=== PATIENT | female | born 1975 | race Caucasian/White ===

== ENCOUNTER → 2017-08-11 | Outpatient (CLI) | payer OTHER ==
[2017-08-11 12:19] LABS: Basophils % (A) 1 %; CH 30.8; CHCM 33.2; Eosinophils # (A) 0.4 k/uL (0-0.7); Eosinophils % (A) 5 %; HCT 41.5 % (34.0-46.0); HDW 2.63; HGB 14.3 gm/dL (11.4-16.0); Luc # (Auto) 0.08; Luc % (Auto) 1; Lymphocytes % (A) 31 %; MCHC 34.4 g/dL (31.0-37.0); Mean Platelet Volume 7.7; Monocytes # (A) 0.3 k/uL (0-1.0); Monocytes % (A) 4 %; Neutrophils # (A) 3.8 k/uL (1.3-7.7); Neutrophils % (A) 58 %; RBC 4.46 m/uL (3.80-5.40); RDW 13.2 % (11.5-15.5); WBC 6.5 k/uL (3.8-10.6); WBC (Perox) 6.58
== END | disposition home or self-care (01) ==
LOC: LABPAT 11:46
PROVIDERS: ATTEND Obstetrics & Gynecology
DX: Z01.812 Encounter for preprocedural laboratory examination (principal)
CPT/HCPCS: 36415; 85025

== ENCOUNTER 2017-08-19 06:02 | Day surgery (SDC) | payer BC, OTHER ==
[2017-08-16 13:54] VITALS: BMI 26.0
--- NOTE | 2017-08-18 07:33 | P.HPOB ---
History of Present Illness H&P Date: 08/18/17 Chief Complaint: Menorrhagia and dysmenorrhea. This patient is a pleasant 41-year-old 2 para 2 female whose had long- standing history of menorrhagia and dysmenorrhea. Patient has been using anti- inflammatories and tried oral contraceptives in the past. Patient has had a pelvic ultrasound which was unremarkable. Patient is now requesting trial of endometrial ablation for treatment. Review of Systems Constitutional: Denies chills, Denies fever Cardiovascular: Denies chest pain, Denies shortness of breath Respiratory: Denies cough Gastrointestinal: Denies abdominal pain, Denies diarrhea, Denies nausea, Denies vomiting Genitourinary: Reports as per HPI Menstruation: Reports period heavy Past Medical History Additional Past Medical History / Comment(s): MIGRAINES History of Any Multi-Drug Resistant Organisms: None Reported Past Surgical History: Cholecystectomy, Orthopedic Surgery Additional Past Surgical History / Comment(s): LEFT KNEE SURGERY Past Anesthesia/Blood Transfusion Reactions: No Reported Reaction Past Psychological History: No Psychological Hx Reported Smoking Status: Current every day smoker Past Alcohol Use History: Occasional Past Drug Use History: None Reported - Past Family History Mother Family Medical History: No Reported History Medications and Allergies Home Medications Medication Instructions Recorded Confirmed Type Eletriptan [Relpax] 40 mg PO DIRECTED PRN 08/16/17 08/16/17 History Ibuprofen [Motrin] 800 mg PO DIRECTED 08/16/17 08/16/17 History Naproxen [Naproxen] 500 mg PO DIRECTED PRN 08/16/17 08/16/17 History Allergies Allergy/AdvReac Type Severity Reaction Status Date / Time No Known Allergies Allergy Verified 08/16/17 13:35 Exam - OBG Physical Exam Abdomen: bowel sounds normal, no diffuse tenderness, no bruit present, no guarding noted, no hepatomegaly, no splenomegaly, no mass Vulva: both: normal Vagina: normal moisture, no discharge Cervix: no lesion, no discharge Uterus: normal size, normal contour Adnexa: both: normal Assessment and Plan (1) Menorrhagia Narrative/Plan: This is a pleasant 41-year-old 2 para 2 female with persistent menorrhagia and dysmenorrhea requesting trial of endometrial ablation for treatment. Patient does understand the surgery and risks including risks of infection, bleeding, possible uterine perforation, and/or thermal injury. All the patient's questions have been answered and a written consent is obtained. Patient I also discussed the fact that this most likely will help her menorrhagia it may or may not help the dysmenorrhea. Status: Acute (2) Dysmenorrhea Status: Acute
[~2017-08-19 06:02] MED LIST: DEXAMETHASONE SOD PHOSPHATE 10 MG/ML 1 ML VIAL IV ONE; LACTATED RINGERS 1,000 ML IV SCH; LIDOCAINE 1% 20 ML VIAL (10MG/ML) FOR IV START INTRADERMA PRN; ONDANSETRON 4 MG/2 ML VIAL IVP ONE; Pre Op ABX Message 1 EACH MISC MISCELLANE ONE; SCOPOLAMINE 1.5MG/72HR PATCH TRANSDERM ONE
[2017-08-19] MEDS ORDERED: LIDOCAINE 1% INJ 10MG/ML (20 ML MDV) ONE (06:46)
[2017-08-19] MEDS ORDERED: KETOROLAC 30 MG/ML 1 ML VIAL ONE (06:46)
[2017-08-19] MEDS ORDERED: MIDAZOLAM 2 MG/2 ML VIAL ONE (06:46)
[2017-08-19] MEDS ORDERED: PROPOFOL 10 MG/ML 20 ML VIAL IV ONE (06:46)
[2017-08-19] MEDS: HYDROmorphone 1 MG/ML 1 ML SYRINGE IVP ONE ×4 (07:23→08:03)
--- NOTE | 2017-08-19 07:24 | P.OP ---
Date of Procedure: 08/19/17 Preoperative Diagnosis: Menorrhagia and dysmenorrhea Postoperative Diagnosis: Same Procedure(s) Performed: #1: Hysteroscopy. #2 D&C. #3: NovaSure endometrial ablation. Anesthesia: MAC Surgeon: Porfirio Ann Estimated Blood Loss (ml): 10 Urine output (ml): 10 Pathology: other (Uterine curettings) Condition: stable Disposition: PACU Indications for Procedure: Please see dictated H&P for intimate details of this patient's admission. Brief summary this is a pleasant 41-year-old 2 para 2 female with long- standing menorrhagia and dysmenorrhea who wishes to try an endometrial ablation for treatment. Patient does understand the surgery and risks including risks of infection, bleeding, possible uterine perforation, and/or thermal injury. All the patient's questions were answered written consent is obtained. Operative Findings: This patient had a normal-appearing uterine cavity. Description of Procedure: This patient is taken to the operating room where she is laid in the supine position. She subsequently goes general anesthesia without incident. With an adequate level of anesthesia she's placed in dorsal lithotomy position. She has a vaginal perineal prep and drape. Examination under anesthesia shows a mid position uterus. I first drain her bladder for 10 mL of clear urine. A weighted speculum placed in the posterior vagina. The anterior lip of the cervix was then grabbed with an Allis clamp. I gently sound the uterus to 9.5 cm. Gentle dilation is then done of the endocervix to allow the hysteroscope easily and the uterine cavity. Hysteroscopy is performed with saline solution. Uterine cavity is measured a length of 6.5 cm. Uterine cavity appears normal without polyps fibroids or growths. With this done cervix is dilated more to allow a sharp curette easily and uterine cavity a gentle but thorough curettage of all 4 quadrants is done. With this done the NovaSure device is then opened it appears to be intact. It is set at a length of 6.5 cm and opens up to a width of 4.2 cm. The NovaSure device is then sealed in place and passes the cavity integrity test. It is enabled at 150 W setting for 58 seconds. NovaSure device is then removed again appears to be intact. Hysteroscopy again is performed and the uterine cavity appears to be ablated up to the endocervix. This completed the procedure is then ended. The Allis clamp and weighted speculum removed. All counts are correct 3. Patient is awakened from anesthesia and taken recovery room in satisfactory condition. No complications.
[2017-08-19 07:32] VITALS: TEMP 96.7
[2017-08-19] MEDS ORDERED: LACTATED RINGERS 1,000 ML IV ONE (07:45)
[2017-08-19 08:03] VITALS: RESP 16
[2017-08-19] MEDS ORDERED: ONDANSETRON 4 MG/2 ML VIAL IVP ONE (09:39)
[2017-08-19 10:05] VITALS: BP 105/62; PULSE 72
== END 2017-08-19 10:22 | disposition home or self-care (01) ==
LOC: OR 06:02
PROVIDERS: ATTEND Obstetrics & Gynecology
DX: N92.0 Excessive and frequent menstruation with regular cycle (principal); N94.6 Dysmenorrhea, unspecified; F17.200 Nicotine dependence, unspecified, uncomplicated; Z79.1 Long term (current) use of non-steroidal anti-inflammatories (NSAID); Z79.3 Long term (current) use of hormonal contraceptives
CPT/HCPCS: 81025; 88305; 58563; J2250; J1100; J2405; J2001; J1885; J1170; J2704

== ENCOUNTER → 2018-08-10 | Outpatient (CLI) | payer OTHER ==
--- NOTE | 2018-08-10 14:57 | MM ---
Reason for exam: screening (asymptomatic). Last mammogram was performed 4 years and 3 months ago. History: Family history of breast cancer in maternal grandmother. Physical Findings: A clinical breast exam by your physician is recommended on an annual basis and results should be correlated with mammographic findings. MG Screening Mammo w CAD Bilateral CC and MLO view(s) were taken. Prior study comparison: May 22, 2014, mammogram, performed at [facility]. The breast tissue is heterogeneously dense. This may lower the sensitivity of mammography. New nodularity in the left breast. Focal asymmetry right upper outer quadrant anterior depth. This finding is changed when compared with previous exams. ASSESSMENT: Incomplete: need additional imaging evaluation, BI-RAD 0 RECOMMENDATION: Special view mammogram of the right breast. Ultrasound of the left breast. [facility] will attempt to contact patient to return for supplemental views and ultrasound.
== END | disposition home or self-care (01) ==
LOC: RADMAMWWP 08:06
PROVIDERS: ATTEND Obstetrics & Gynecology
DX: Z12.31 Encounter for screening mammogram for malignant neoplasm of breast (principal)
CPT/HCPCS: 77067

== ENCOUNTER → 2019-04-17 | Outpatient (CLI) | payer OTHER ==
--- NOTE | 2019-04-19 08:50 | MR ---
EXAMINATION TYPE: MR cervical spine wo con DATE OF EXAM: 04/17/2019 COMPARISON: Prior MR cervical spine 08/15/2015 HISTORY: Radiculopathy, cervical region TECHNIQUE: Multiplanar, multisequence images of the cervical spine were acquired. C2-C3: No evidence for degenerative disc disease. No disc bulge/herniation or protrusion. No Canal stenosis. Foramina are patent bilaterally. C3-C4: Uncovertebral joint hypertrophy causes some left-sided foraminal encroachment. There is house detective ior extension of endplate disc complex causing some anterolateral mass effect on the thecal sac. No s ignificant central stenosis. C4-C5: Lateral extension of endplate disc complex, uncovertebral joint hypertrophy causes some left s ided foraminal encroachment. Mild anterior mass effect on the thecal sac. No significant central sten osis. C5-C6: Posterior extension endplate disc complex with posterior disc herniation likely contacting the anterior cervical cord results in mild to moderate central canal stenosis. There is bilateral forami nal encroachment due to uncovertebral joint hypertrophy. C6-C7: Bilateral foraminal encroachment due to uncovertebral joint hypertrophy, there is posterior ex tension endplate disc complex somewhat eccentric to the left causing mild central stenosis. C7-T1: No evidence for degenerative disc disease. No disc bulge/herniation or protrusion. No Canal stenosis. Foramina are patent bilaterally. Cervical segments are intact. There is normal alignment. Cervical spinal cord is of normal signal. Craniovertebral junction relationships are within normal limits. There is some loss of disc height signal at C5-6 and C6-7. There is associated spondylosis and endplate discogenic marrow signal change . Straightening of the cervical spine may be due to underlying muscle spasm. IMPRESSION: Degenerative disc disease. Mild sinus disease noted incidentally.
== END | disposition home or self-care (01) ==
LOC: RADMRIMAIN 08:14
PROVIDERS: ATTEND Psychiatry & Neurology Neurology
DX: M50.30 Other cervical disc degeneration, unspecified cervical region (principal)
CPT/HCPCS: 72141

== ENCOUNTER → 2019-12-11 | Outpatient (CLI) | payer BC ==
[2019-12-11 14:03] LABS: Basophils # (A) 0.1 k/uL (0-0.2); Basophils % (A) 1 %; Eosinophils # (A) 0.2 k/uL (0-0.7); Eosinophils % (A) 2 %; HCT 46.4 % (34.0-46.0); HGB 15.4 gm/dL (11.4-16.0); Lymphocytes # (A) 2.3 k/uL (1.0-4.8); Lymphocytes % (A) 28 %; MCH 31.6 pg (25.0-35.0); MCHC 33.1 g/dL (31.0-37.0); MCV 95.4 fL (80.0-100.0); Mean Platelet Volume 8.3; Monocytes # (A) 0.3 k/uL (0-1.0); Monocytes % (A) 4 %; Neutrophils # (A) 5.2 k/uL (1.3-7.7); Neutrophils % (A) 64 %; Platelet Count 238 k/uL (150-450); RBC 4.86 m/uL (3.80-5.40); WBC 8.1 k/uL (3.8-10.6)
[2019-12-11 14:54] LABS: African American GFR (CKD) >90 (>60 ml/min/1.73 sqM); Anion Gap 8 mmol/L; Blood Urea Nitrogen 14 mg/dL (7-17); Calcium 10.2 mg/dL (8.4-10.2); Carbon Dioxide 27 mmol/L (22-30); Chloride 106 mmol/L (98-107); Glucose 118 mg/dL (74-99); Non-African American GFR(CKD) >90 (>60 ml/min/1.73 sqM); Sodium 141 mmol/L (137-145)
== END | disposition home or self-care (01) ==
LOC: LABWHC1 12:30
PROVIDERS: ATTEND Obstetrics & Gynecology
DX: Z01.812 Encounter for preprocedural laboratory examination (principal)
CPT/HCPCS: 36415; 80048; 85025; 86850; 86900; 86901

== ENCOUNTER 2019-12-20 06:06 | Day surgery (SDC) | payer BC, OTHER ==
[2019-12-18 14:12] VITALS: BMI 26.5
--- NOTE | 2019-12-18 17:09 | P.HPOB ---
History of Present Illness H&P Date: 12/18/19 Chief Complaint: Dysfunctional uterine bleeding failed NovaSure Carlo is 44-year-old female who underwent a NovaSure ablation 2 years ago and has had continued persistent bleeding. Her dysmenorrhea and bleeding is becoming disabling. She uses nonsteroidal anti-inflammatories but is getting no real relief. She is scheduled for a robotic-assisted laparoscopic hysterectomy possible ANUP and possible BSO. Removal of fallopian tubes is also expected during this stage are clear easily obtainable. Risks/benefits/alternatives to this procedure were discussed with the patient in detail and all questions were answered for her prior to proceeding to the operative room. She is also set up for diagnostic cystoscopy. Past Medical History Additional Past Medical History / Comment(s): migraines, abnormal vaginal bleeding History of Any Multi-Drug Resistant Organisms: None Reported Past Surgical History: Cholecystectomy, Orthopedic Surgery, Uterine Ablation Additional Past Surgical History / Comment(s): left knee arthroscopy Past Anesthesia/Blood Transfusion Reactions: Previous Problems w/ Anesthesia, Motion Sickness, Postoperative Nausea & Vomiting (PONV) Additional Past Anesthesia/Blood Transfusion Reaction / Comment(s): dizzy in recovery after uterine ablation then developed itching all over after getting home Smoking Status: Current every day smoker - Past Family History Daughter(s) Additional Family Medical History / Comment(s): "blood clot in collar bone and rib" Medications and Allergies Home Medications Medication Instructions Recorded Confirmed Type Eletriptan [Relpax] 40 mg PO DIRECTED PRN 08/16/17 12/18/19 History Ibuprofen [Motrin] 800 mg PO DIRECTED 08/16/17 12/18/19 History Mv-Min/Vit C/Glut/Lysine/Hc124 1 each PO DIRECTED PRN 12/18/19 12/18/19 History [Airborne Tablet Chewable] Allergies Allergy/AdvReac Type Severity Reaction Status Date / Time No Known Allergies Allergy Verified 12/18/19 13:59 Exam Osteopathic Statement: *. No significant issues noted on an osteopathic structural exam other than those noted in the History and Physical/Consult. Intake and Output 12/18/19 12/18/19 12/18/19 06:59 14:59 22:59 Other: Weight 68.039 kg - OBG Physical Exam Breast: both: normal (no masses) Abdomen: bowel sounds normal, no diffuse tenderness, no bruit present, no guarding noted, no hepatomegaly, no splenomegaly, no mass Vulva: both: normal Vagina: normal moisture, no discharge Cervix: no lesion, no discharge Uterus: normal size, normal contour Adnexa: both: normal Anus/Rectum: normal perianal skin, no rectal mass, no hemorrhoids, heme negative
[~2019-12-20 06:06] MED LIST changes: +HYDROmorphone 0.5 MG/0.5 ML SYRINGE IVP PRN; -LACTATED RINGERS 1,000 ML IV SCH; -LIDOCAINE 1% 20 ML VIAL (10MG/ML) FOR IV START INTRADERMA PRN; +MIDAZOLAM 2 MG/2 ML VIAL IV PRN; -Pre Op ABX Message 1 EACH MISC MISCELLANE ONE
[2019-12-20] MEDS: LACTATED RINGERS 1,000 ML IV SCH ×2 (06:33→06:41)
[2019-12-20] MEDS: LIDOCAINE 1% 20 ML VIAL (10MG/ML) FOR IV START INTRADERMA PRN ×2 (06:33→06:38)
[2019-12-20] MEDS ORDERED: ONDANSETRON 4 MG/2 ML VIAL IVP PRN (07:15)
[2019-12-20] MEDS ORDERED: KETOROLAC 30 MG/ML 1 ML VIAL IVP PRN (07:15)
[2019-12-20] MEDS ORDERED: HYDROmorphone 0.5 MG/0.5 ML SYRINGE IVP PRN (07:15)
[2019-12-20] MEDS ORDERED: NALOXONE 0.4 MG/ML 1 ML VIAL IV PRN (07:15)
[2019-12-20] MEDS ORDERED: ROCURONIUM BROMIDE 10 MG/ML 10 ML VIAL IV ONE (07:22)
[2019-12-20] MEDS ORDERED: SUCCINYLCHOLINE CHLORIDE 100 MG/5 ML SYR IV ONE (07:22)
[2019-12-20] MEDS ORDERED: fentaNYL (PF) 50 MCG/ML 2 ML AMP ONE (07:22)
[2019-12-20] MEDS ORDERED: NEOSTIGMINE 1 MG/ML 10 ML VIAL ONE (07:22)
[2019-12-20] MEDS ORDERED: PHENYLEPHRINE-0.9% NACL SYG 1 MG/10 ML SYRINGE ONE (07:22)
[2019-12-20] MEDS ORDERED: LIDOCAINE 1% INJ 10MG/ML (20 ML MDV) ONE (07:22)
[2019-12-20] MEDS ORDERED: MIDAZOLAM 2 MG/2 ML VIAL ONE (07:22)
[2019-12-20] MEDS ORDERED: GLYCOPYRROLATE 0.2 MG/ML 2 ML VIAL ONE (07:22)
[2019-12-20] MEDS ORDERED: PROPOFOL 10 MG/ML 20 ML VIAL IV ONE (07:22)
[2019-12-20] MEDS ORDERED: MORPHINE SULFATE (PF) 0.3 MG/0.3 ML SYR ONE (07:22)
[2019-12-20] MEDS: diphenhydrAMINE 50 MG/ML 1 ML VIAL IVP PRN ×3 (07:28→20:18)
[2019-12-20] MEDS ORDERED: BUPIVACAINE (PF) 0.25% 30 ML VIAL SQ ONE ×2 (08:13)
[2019-12-20] MEDS ORDERED: SIMETHICONE 80 MG CHEWABLE PO PRN (09:02)
[2019-12-20] MEDS ORDERED: HYDROcodone/APAP 5-325MG 1 EACH TAB PO PRN ×2 (09:04)
--- NOTE | 2019-12-20 09:10 | P.OP ---
Date of Procedure: 12/20/19 Preoperative Diagnosis: Dysmenorrhea Postoperative Diagnosis: Same with stage I endometriosis Procedure(s) Performed: Robotic-assisted laparoscopic hysterectomy with bilateral salpingectomy and ablation of endometriosis Anesthesia: DOUGLAS Surgeon: Chandrakant Medrano [employer] Manager #1: Bella Schulz Estimated Blood Loss (ml): 50 IV fluids (ml): 600 Urine output (ml): 300 Pathology: other (Uterus, cervix, fallopian tubes) Condition: stable Disposition: floor Operative Findings: Stage I endometriosis all electrofulgurated behind right ovary as well as in posterior cul-de-sac Description of Procedure: Patient was taken to the operating suite where general anesthetic was found be adequate. She was prepped and draped in normal sterile fashion and placed in the dorsal lithotomy position. Initially a weighted speculum was inserted into the vagina and the anterior lip of the cervix was identified and grasped with double-tooth tenaculum. Cervix was then measured to 3 cm and sounded to 10 cm. Cervix wasn't fully dilated and a Ana Lilia manipulator was inserted without difficulty with sutures placed at 3 and 9. Other instruments were then removed and a Mark cath was placed. Gloves were changed and attention was turned to the abdominal portion procedure where 3 mL a course of Marcaine was injected approximately 2 center meters the above the umbilicus. Through this injected anesthetic a 5 mm skin incision was made and through this incision under direct visualization with an optical trocar and sleeve the camera was inserted. Once peritoneal placement was assured gas was allowed to fully insufflate the abdomen and patient was then placed in steep Trendelenburg position. 2 lateral ports were then placed 10 cm lateral to the umbilicus on the right and left side and the fourth port and sleeve was inserted through a 1 cm incision between the left lateral and medial ports. Once this was accomplished camera port was exchanged for a da Kimberly port and the robot was brought in and docked. Once fully docked a scissor was placed in the one arm and a [place] grasper in the 2 arm. At this point I broke scrub and went to the console. Uterus was then elevated and tipped to the right side. Left fallopian tube was then excised by cauterizing through the mesosalpinx and then cutting. Once to approximately the same level as the utero-ovarian ligament, utero-ovarian ligament was cauterized and transected and cut to the level the round ligament which was also cauterized and transected. Sterilization of lateral vascular was then performed the left side. Once this was accomplished uterine vascular was cauterized and then while undermining the bladder flap with [place] the latter Was incised across face uterus with a scissor and the bladder was then bluntly dissected out of the operative field. Attention was then turned the right side of the uterus in a similar fashion this was developed. The small endometrial implant behind the left ovary was then cauterized as was the endometrial implants in the posterior cul-de-sac. Once this was accomplished uterus was pressed inward and cup was identified. Anterior colpotomy was then made and then following the blue couple any 3 and 60 fashion counterclockwise cheating head when necessary to maintain excellent hemostasis the uterus was excised. Once this accomplished uterus was brought into the vagina to maintain pneumoperitoneum. Once this was accomplished vessels and pedicles were verified for hemostasis. And then the incidents were exchanged for a cardia grasper and a make suture cut and the vaginal cuff was closed with 20 be lock suture. Once this was completed there was small amount of bleeding on the left side of the incision therefore interrupted 0 Vicryl sutures placed to obtain excellent hemostasis across this. Pelvis was then irrigated and suctioned no bleeding is noted pedicles were all clear and hemostatic. Instruments were then removed and gas allowed to expel from the abdomen. 5 deep breaths were provided during this process. Dr. Schulz and brandon incision subcuticular E and the remaining 7 mL of Marcaine was injected around these incisions. I did do a cystoscopy concurrently and excellent flow was noted from both ureteral jets. Sponge, lap, needle counts were all correct 2. Patient was then taken to the recovery room in stable and satisfactory condition.
[2019-12-20] MEDS ORDERED: diphenhydrAMINE 50 MG/ML 1 ML VIAL IVP ONE (09:20)
[2019-12-20] MEDS: NALBUPHINE 10 MG/0.5 ML (20 mL MDV) IV PRN ×3 (11:20→23:23)
[2019-12-20] MEDS ORDERED: ZOLPIDEM 10 MG TAB PO PRN (20:22)
[2019-12-20] MEDS ORDERED: ZOLPIDEM 5 MG TAB PO PRN (20:38)
[2019-12-20] MEDS ORDERED: SENNOSIDES-DOCUSATE SODIUM 1 EACH TAB PO SCH (21:00)
[2019-12-21] MEDS: diphenhydrAMINE 50 MG/ML 1 ML VIAL IVP PRN (05:31)
[2019-12-21 05:42] VITALS: RESP 16
[2019-12-21] MEDS ORDERED: ONDANSETRON 4 MG/2 ML VIAL IVP PRN (08:00)
--- NOTE | 2019-12-21 08:08 | P.PN ---
Progress Note - Text Progress Note Date: 12/21/19 Patient was seen today at 7:20 AM 12/21/2019. Postoperative day 1 status post robotic hysterectomy under general endotracheal anesthesia, and intrathecal morphine given for postoperative analgesia, patient doing well, there is no anesthesia related complications, Patient had no headache, vital signs stable , Assessment and plan= postop day 1 status post robotic hysterectomy,, doing well there is no anesthesia related complication.
--- NOTE | 2019-12-21 08:29 | P.DS ---
Providers Expected date of discharge: 12/21/19 Attending physician: Chandrakant Medrano Primary care physician: Kiara Ronald [facility] Course: Carlo is doing very well postop day 1. She is ambulating, voiding and tolerating her diet. She voices no complaints and is requesting discharge home this morning. Vital signs are stable and afebrile. Heart regular, lungs clear, extremities are without pain. Abdomen soft and nontender with incisions that are clean dry and intact. She does still have some itching from the Duramorph spinal but otherwise is feeling well. Discharge instructions were thoroughly reviewed and all questions were answered for her prior to her discharge. She is stable for discharge this time and prescription for Motrin and [place] are forwarded to the pharmacy. Patient Condition at Discharge: Good Plan - Discharge Summary Discharge Rx Participant: Yes New Discharge Prescriptions: New Ibuprofen [Motrin] 600 mg PO Q6HR PRN #30 tab PRN Reason: Pain HYDROcodone/APAP 5-325MG [[place] 5-325] 1 tab PO Q4HR PRN #30 tab PRN Reason: Pain No Action Eletriptan [Relpax] 40 mg PO DIRECTED PRN PRN Reason: Migraine Headache Ibuprofen [Motrin] 800 mg PO DIRECTED Mv-Min/Vit C/Glut/Lysine/Hc124 [Airborne Tablet Chewable] 1 each PO DIRECTED PRN PRN Reason: sign of illness Discharge Medication List Eletriptan [Relpax] 40 mg PO DIRECTED PRN 08/16/17 [History] Ibuprofen [Motrin] 800 mg PO DIRECTED 08/16/17 [History] Mv-Min/Vit C/Glut/Lysine/Hc124 [Airborne Tablet Chewable] 1 each PO DIRECTED PRN 12/18/19 [History] HYDROcodone/APAP 5-325MG [[place] 5-325] 1 tab PO Q4HR PRN #30 tab 12/21/19 [Rx] Ibuprofen [Motrin] 600 mg PO Q6HR PRN #30 tab 12/21/19 [Rx] Follow up Appointment(s)/Referral(s): Chandrakant Medrano DO [Doctor of Osteopathic Medicine] - 2 Weeks Activity/Diet/Wound Care/Special Instructions: No heavy lifting, limit stairs and driving, and pelvic rest. If any high temperatures, heavy bleeding, or severe pain call my office Discharge Disposition: HOME SELF-CARE
[2019-12-21 08:46] VITALS: BP 103/56; PULSE 73
[2019-12-21 08:47] VITALS: TEMP 99
== END 2019-12-21 09:20 | disposition home or self-care (01) ==
LOC: OR 06:06 → 4FBP 09:05 → OR 12-21 09:20
PROVIDERS: ATTEND Obstetrics & Gynecology
DX: D25.1 Intramural leiomyoma of uterus (principal); N80.1 Endometriosis of ovary; N80.3 Endometriosis of pelvic peritoneum; N80.0 Endometriosis of uterus; N83.8 Other noninflammatory disorders of ovary, fallopian tube and broad ligament; N99.85 Post endometrial ablation syndrome; G43.909 Migraine, unspecified, not intractable, without status migrainosus; F17.210 Nicotine dependence, cigarettes, uncomplicated; Z79.1 Long term (current) use of non-steroidal anti-inflammatories (NSAID); Z90.49 Acquired absence of other specified parts of digestive tract; Z98.890 Other specified postprocedural states; Z79.899 Other long term (current) drug therapy; Z88.0 Allergy status to penicillin
CPT/HCPCS: 81025; 86900; 86901; 86850; 88307; 58571; J2250; J1200 ×2; J1100; J2710; J0690; J2405; J2001; J2274; J3010; J2370; J0330; J2704; J2300

== ENCOUNTER → 2020-04-30 | Outpatient (CLI) | payer BC ==
--- NOTE | 2020-05-01 09:54 | MM ---
Reason for exam: additional evaluation requested from prior study. Last mammogram was performed 1 year and 9 months ago. History: Family history of breast cancer in maternal grandmother. Physical Findings: Nurse did not find any significant physical abnormalities on exam. MG Diagnostic Mammo w CAD FABRIZIO Bilateral CC and MLO view(s) were taken. LM, spot compression MLO, and spot compression CC view(s) were taken of the left breast. Prior study comparison: August 10, 2018, bilateral MG screening mammo w CAD. May 22, 2014, mammogram, performed at [facility]. The breast tissue is heterogeneously dense. This may lower the sensitivity of mammography. Finding: There is a 8 mm obscured oval mass in the upper quadrant, middle posterior position of the left breast. Focal asymmetry 8mm middle posterior upper breast. These results were verbally communicated with the patient and result sheet given to the patient on 04/30/20. ASSESSMENT: Incomplete: need additional imaging evaluation, BI-RAD 0 RECOMMENDATION: Ultrasound of the left breast.
--- NOTE | 2020-05-01 09:56 | USB ---
Reason for exam: additional evaluation requested from abnormal screening. History: Family history of breast cancer in maternal grandmother. US Breast LT Left complete breast ultrasound includes all four quadrants, the retroareolar region and axilla. Finding demonstrates a 5 x 2 x 5mm cystic lesion at 12 o'clock, a 3 x 3 x 3mm cystic lesion at 3 o'clock, a 4 x 2 x 4mm oval, cystic cluster at 4 o'clock and a 8 x 4 x 9mm oval, cystic lesion at 2 o'clock, this may correspond to the mammographic finding. 6 month follow up mammogram recommended. These results were verbally communicated with the patient and result sheet given to the patient on 04/30/20. ASSESSMENT: Probably benign, BI-RAD 3 RECOMMENDATION: Follow-up diagnostic mammogram of the left breast in 6 months.
== END | disposition home or self-care (01) ==
LOC: RADMAMWWP 08:26
PROVIDERS: ATTEND Obstetrics & Gynecology
DX: R92.8 Other abnormal and inconclusive findings on diagnostic imaging of breast (principal)
CPT/HCPCS: 77066

== ENCOUNTER → 2021-03-24 | Outpatient (CLI) | payer BC ==
--- NOTE | 2021-03-24 14:30 | XR ---
EXAMINATION TYPE: XR chest 2V DATE OF EXAM: 03/24/2021 COMPARISON: NONE TECHNIQUE: PA and lateral views submitted. HISTORY: chest discomfort FINDINGS: The lungs are clear and there is no pneumothorax, pleural effusion, or focal pneumonia. IMPRESSION: 1. No acute process.
== END | disposition home or self-care (01) ==
LOC: RADXRMAIN 14:06
PROVIDERS: ATTEND Family Medicine
DX: R07.89 Other chest pain (principal)
CPT/HCPCS: 71046

== ENCOUNTER 2022-09-12 18:01 | Inpatient (IN) | payer BC ==
[2022-09-12] MEDS ORDERED: predniSONE 50 MG TAB PO STA (18:19)
[2022-09-12] MEDS ORDERED: FAMOTIDINE 20 MG TAB PO STA (18:19)
[2022-09-12] MEDS ORDERED: diphenhydrAMINE 25 MG CAP PO STA (18:19)
[2022-09-12] MEDS ORDERED: KETOROLAC 15 MG/ML 1 ML VIAL IVP STA (18:31)
[2022-09-12] MEDS ORDERED: SODIUM CHLORIDE 0.9% 1,000 ML IV STA (18:31)
--- NOTE | 2022-09-12 19:32 | CT ---
EXAMINATION TYPE: CT abdomen pelvis wo con CT DLP: 400.1 mGycm, Automated exposure control for dose reduction was used. DATE OF EXAM: 09/12/2022 7:13 PM COMPARISON: None. CLINICAL INDICATION:Female, 46 years old with history of right flank pain; right flank pain TECHNIQUE: Axial CT of the abdomen and pelvis. Sagittal and coronal reformats were created on a [email or web address] workstation. Contrast used none Oral contrast used: without Oral Contrast FINDINGS: LOWER CHEST: Unremarkable ABDOMEN LIVER: Diffusely hypoattenuating parenchyma. GALLBLADDER AND BILE DUCTS: The gallbladder is surgically absent. PANCREAS: Unremarkable. SPLEEN: Unremarkable. ADRENAL GLANDS: Unremarkable. KIDNEYS AND URETERS: Mild right hydroureteronephrosis. There is a 6 mm calculus in the distal right u reter (series 201, image 116) just proximal to the ureterovesicular junction. Additional nonobstruct ing 5 mm calculus is seen in the right lower pole. No left hydronephrosis. Nonobstructing 3 mm puncta te calculi in the lower pole of the left kidney. Left ureter is normal in appearance. Minimal right p erinephric fat stranding. PELVIS BLADDER: Underdistended. REPRODUCTIVE: Right adnexal cystic lesion measuring 3.5 cm with simple fluid attenuation, rep resenting ovarian cysts. Suspected cystic changes of the left ovary. The uterus is not visualized and presumed surgically absent. ABDOMEN & PELVIS STOMACH AND BOWEL: Stomach and duodenum are unremarkable No evidence of bowel obstruction. PERITONEUM: No evidence of pneumoperitoneum or free fluid. VASCULATURE: No evidence of aortic aneurysm. MUSCULOSKELETAL: Mild degenerative changes of the sacroiliac joints bilaterally. No acute osseous abn ormalities. LYMPH NODES: No gross evidence for lymphadenopathy. SOFT TISSUE/ABDOMINAL WALL: Unremarkable IMPRESSION: 1. Right 6 mm distal ureteral calculus with mild upstream hydroureteronephrosis. 2. Bilateral non-obstructing renal calculi. 3. Additional incidental findings as detailed above.
[2022-09-12 19:41] LABS: Appearance,Urine Clear (Clear); Bacteria,Urine Rare /hpf; Bilirubin,Urine Negative (Negative); Blood,Urine Large (Negative); Color,Urine Yellow; Glucose,Urine (UA) Negative (Negative); Ketones,Urine 2+ (Negative); Leukocyte Esterase,Urine Trace (Negative); Mucus,Urine Moderate /hpf; Nitrite,Urine Negative (Negative); Protein,Urine 1+ (Negative); RBC,Urine >182 /hpf (0-5); Specific Gravity,Urine 1.027 (1.001-1.035); Squamous Epithelial Cell,Urine 5 /hpf (0-4); WBC,Urine 12 /hpf (0-5)
[2022-09-12] MEDS ORDERED: TAMSULOSIN 0.4 MG CAP.ER.24H PO STA (19:45)
[2022-09-12] MEDS ORDERED: HYDROmorphone 0.5 MG/0.5 ML SYRINGE IVP STA (19:45)
[2022-09-12 20:20] LABS: Basophils % (A) 0 %; Eosinophils # (A) 0.1 k/uL (0-0.7); Eosinophils % (A) 1 %; HCT 36.3 % (34.0-46.0); HGB 13.5 gm/dL (11.4-16.0); Lymphocytes # (A) 1.3 k/uL (1.0-4.8); Lymphocytes % (A) 16 %; MCH 36.2 pg (25.0-35.0); MCHC 37.2 g/dL (31.0-37.0); MCV 97.4 fL (80.0-100.0); Mean Platelet Volume 9.2; Monocytes # (A) 0.4 k/uL (0-1.0); Monocytes % (A) 6 %; Neutrophils # (A) 6.1 k/uL (1.3-7.7); Neutrophils % (A) 75 %; Platelet Count 144 k/uL (150-450); RBC 3.72 m/uL (3.80-5.40); RDW 12.9 % (11.5-15.5)
[2022-09-12 20:34] LABS: ALT 29 U/L (4-34); AST 29 U/L (14-36); African American GFR (CKD) >90 (>60 ml/min/1.73 sqM); Albumin 3.6 g/dL (3.5-5.0); Alkaline Phosphatase 73 U/L (38-126); Anion Gap 10 mmol/L; Blood Urea Nitrogen 13 mg/dL (7-17); Calcium 8.6 mg/dL (8.4-10.2); Carbon Dioxide 21 mmol/L (22-30); Chloride 106 mmol/L (98-107); Glucose 84 mg/dL (74-99); Lipase 152 U/L (23-300); Non-African American GFR(CKD) >90 (>60 ml/min/1.73 sqM); Sodium 137 mmol/L (137-145); Total Bilirubin 0.7 mg/dL (0.2-1.3); Total Protein 5.6 g/dL (6.3-8.2)
--- NOTE | 2022-09-12 20:47 | ED ---
Female Urogenital HPI - General Chief complaint: Urogenital Stated complaint: Kidney stones Time Seen by Provider: 09/12/22 18:29 Source: patient Mode of arrival: ambulatory Limitations: no limitations - History of Present Illness Initial comments: Patient is a 46-year-old female with past medical history of cholecystectomy who presents to the emergency department with a chief complaint of right side pain and blood in urine. Patient states symptoms started 2 days ago. Reports pain in the right side with radiation to the right back. Denies fever, chills, nausea, vomiting, burning with urination, trouble with urination, increased urinary frequency, increased urinary urgency. Denies history of kidney stone. Patient went to urgent care today who gave her Toradol. States this worked initially but pain returned after a couple hours. Denies chest pain, shortness of breath, abdominal pain. Does admit to diarrhea however states this is a chronic issue for her after cholecystectomy 2 years ago. Reports 1-3 episodes of diarrhea today, nonbloody. - Related Data Home Medications Medication Instructions Recorded Confirmed Eletriptan [Relpax] 40 mg PO DAILY PRN 08/16/17 09/12/22 Ibuprofen [Motrin] 800 mg PO DAILY PRN 08/16/17 09/12/22 Cephalexin [Keflex] 500 mg PO Q6HR 09/12/22 09/12/22 Cyclobenzaprine [Flexeril] 5 mg PO BID PRN 09/12/22 09/12/22 Previous Rx's Medication Instructions Recorded Tamsulosin [Flomax] 0.4 mg PO DAILY #14 cap 09/12/22 Allergies Allergy/AdvReac Type Severity Reaction Status Date / Time Penicillins Allergy Unknown Verified 09/12/22 22:10 Childhood Review of Systems ROS Statement: Those systems with pertinent positive or pertinent negative responses have been documented in the HPI. ROS Other: All systems not noted in ROS Statement are negative. Past Medical History Additional Past Medical History / Comment(s): migraines, abnormal vaginal bleeding History of Any Multi-Drug Resistant Organisms: None Reported Past Surgical History: Cholecystectomy, Orthopedic Surgery, Uterine Ablation Additional Past Surgical History / Comment(s): left knee arthroscopy Past Anesthesia/Blood Transfusion Reactions: Previous Problems w/ Anesthesia, Motion Sickness, Postoperative Nausea & Vomiting (PONV) Additional Past Anesthesia/Blood Transfusion Reaction / Comment(s): dizzy in recovery after uterine ablation then developed itching all over after getting home Past Psychological History: No Psychological Hx Reported Smoking Status: Current every day smoker Past Alcohol Use History: Occasional Past Drug Use History: None Reported - Past Family History Daughter(s) Additional Family Medical History / Comment(s): "blood clot in collar bone and rib" General Exam Limitations: no limitations General appearance: alert, in no apparent distress Eye exam: Present: normal appearance, PERRL, EOMI. Absent: scleral icterus, conjunctival injection, periorbital swelling Respiratory exam: Present: normal lung sounds bilaterally. Absent: respiratory distress, wheezes, rales, rhonchi, stridor Cardiovascular Exam: Present: regular rate, normal rhythm, normal heart sounds. Absent: systolic murmur, diastolic murmur, rubs, gallop, clicks GI/Abdominal exam: Present: soft, normal bowel sounds. Absent: distended, tenderness, guarding, rebound, rigid Back exam: Present: CVA tenderness (R). Absent: CVA tenderness (L), paraspinal tenderness, vertebral tenderness Neurological exam: Present: alert, oriented X3, CN II-XII intact Psychiatric exam: Present: normal affect, normal mood Skin exam: Present: warm, dry, intact, normal color. Absent: rash Course Vital Signs 09/12/22 09/12/22 09/12/22 18:11 20:24 21:52 Temperature 98.2 F Pulse Rate 86 78 76 Respiratory 16 16 17 Rate Blood Pressure 135/79 122/70 133/80 O2 Sat by Pulse 96 97 100 Oximetry Medical Decision Making - Medical Decision Making This is a 46-year-old female presenting with right flank pain and hematuria.Afebrile. Laboratory studies obtained. There is no leukocytosis. Kidney function is normal. Potassium is very low at 2.7. Urinalysis reveals significant blood and rare bacteria however is contaminated by squamous cells. CT of the abdomen and pelvis obtained without contrast which shows a 6 mm calculus just proximal to [id number] muscular junction with mild right hydroureteronephrosis. There is minimal right perinpephric fat stranding. Also incidental cysts over the bilateral ovaries. Patient does not have abdominal pain or tenderness on exam. Patient given Flomax and IV fluids. Pain controlled. In the setting of kidney stone with bacteriuria, rocephin given. forPotassium replenished. Case discussed with patient. Hypokalemia possibly due to GI loss. She denies diuretic use. Denies weakness. She is agreeable to admission. Repeat potassium to be drawn in [address] Hamilton is my attending. - Lab Data Result diagrams: 09/12/22 20:10 09/12/22 20:10 Lab Results 09/12/22 09/12/22 09/12/22 Range/Units 19:12 20:10 20:10 WBC 8.0 (3.8-10.6) k/uL RBC 3.72 L (3.80-5.40) m/uL Hgb 13.5 (11.4-16.0) gm/dL Hct 36.3 (34.0-46.0) % MCV 97.4 (80.0-100.0) fL MCH 36.2 H (25.0-35.0) pg MCHC 37.2 H (31.0-37.0) g/dL RDW 12.9 (11.5-15.5) % Plt Count 144 L (150-450) k/uL MPV 9.2 Neutrophils % 75 % Lymphocytes % 16 % Monocytes % 6 % Eosinophils % 1 % Basophils % 0 % Neutrophils # 6.1 (1.3-7.7) k/uL Lymphocytes # 1.3 (1.0-4.8) k/uL Monocytes # 0.4 (0-1.0) k/uL Eosinophils # 0.1 (0-0.7) k/uL Basophils # 0.0 (0-0.2) k/uL Sodium 137 (137-145) mmol/L Potassium 2.7 L* (3.5-5.1) mmol/L Chloride 106 (98-107) mmol/L Carbon Dioxide 21 L (22-30) mmol/L Anion Gap 10 mmol/L BUN 13 (7-17) mg/dL Creatinine 0.73 (0.52-1.04) mg/dL Est GFR (CKD-EPI)AfAm >90 (>60 ml/min/1.73 sqM) Est GFR (CKD-EPI)NonAf >90 (>60 ml/min/1.73 sqM) Glucose 84 (74-99) mg/dL Calcium 8.6 (8.4-10.2) mg/dL Total Bilirubin 0.7 (0.2-1.3) mg/dL AST 29 (14-36) U/L ALT 29 (4-34) U/L Alkaline Phosphatase 73 (38-126) U/L Total Protein 5.6 L (6.3-8.2) g/dL Albumin 3.6 (3.5-5.0) g/dL Lipase 152 (23-300) U/L Urine Color Yellow Urine Appearance Clear (Clear) Urine pH 6.0 (5.0-8.0) Ur Specific [place] 1.027 (1.001-1.035) Urine Protein 1+ H (Negative) Urine Glucose (UA) Negative (Negative) Urine Ketones 2+ H (Negative) Urine Blood Large H (Negative) Urine Nitrite Negative (Negative) Urine Bilirubin Negative (Negative) Urine Urobilinogen 2.0 (<2.0) mg/dL Ur Leukocyte Esterase Trace H (Negative) Urine RBC >182 H (0-5) /hpf Urine WBC 12 H (0-5) /hpf Ur Squamous Epith Cells 5 H (0-4) /hpf Urine Bacteria Rare H (None) /hpf Urine Mucus Moderate H (None) /hpf Disposition Clinical Impression: Kidney stone on right side, Right flank pain, Hematuria, Hypokalemia Disposition: ADMITTED IP TO [facility] Condition: Good Instructions (If sedation given, give patient instructions): Kidney Stones (ED) Additional Instructions: . Prescriptions: Tamsulosin [Flomax] 0.4 mg PO DAILY #14 cap Is patient prescribed a controlled substance at d/c from ED?: No Referrals: Kiara Nguyen III, MD [Primary Care Provider] - 1-2 days Decision Time: 21:36
[2022-09-12 21:04] LABS: Potassium 2.7 mmol/L (3.5-5.1)
[2022-09-12] MEDS ORDERED: POTASSIUM CHLORIDE ER 20 MEQ TAB.ER PO STA (21:05)
[2022-09-12] MEDS ORDERED: MORPHINE SULFATE 4 MG/ML SYRINGE IV PRN (22:14)
[2022-09-12] MEDS ORDERED: KETOROLAC 15 MG/ML 1 ML VIAL IVP PRN (22:14)
[2022-09-12] MEDS ORDERED: NALOXONE 0.4 MG/ML 1 ML VIAL IV PRN (22:14)
[2022-09-12] MEDS ORDERED: ONDANSETRON 4 MG/2 ML VIAL IVP PRN (22:14)
[2022-09-12] MEDS: SODIUM CHLORIDE 0.9% 1,000 ML IV SCH (22:24)
[2022-09-12] MEDS ORDERED: SUMAtriptan succinate 50 MG TAB PO PRN (23:00)
[2022-09-13] MEDS: CYCLOBENZAPRINE 5 MG TAB PO PRN ×2 (05:06→19:03)
--- NOTE | 2022-09-13 10:48 | P.HPIM ---
History of Present Illness This is a pleasant 46 results female with past medical history of vaginal bleeding status post uterine ablation and migraine ( on Eletriptap) Patient presents because of flank pain and hematuria Patient pain started Tuesday and got worse yesterday. It is right flank radiating to the groin about 7/10 in severity associated with some hematuria but no dysuria or increased frequency. No other complaints, no chest pain or dyspnea. No vomiting or diarrhea or abdominal pain. No headache or weakness or numbness. She smokes half pack per day and she was counseled to quit she agrees but she declines nicotine patch. Occasional alcohol She does not follow up with urologist Father of her daughter and she is feeling sad for her daughter not been with her currently however she does not feel depressed. I offered for her a test, she declined stating that she has partial hysterectomy She was on Keflex because she wants to urgent care yesterday and this R Keflex for her urinary problem Patient is afebrile and vitals are stable. Labs reviewed, CBC is unremarkable except for mildly low platelet count 1 44, 000. Creatinine normal 0.7. Potassium low at 2.7. Liver enzymes not elevated. Analysis is suspicious for infection and urine culture is pending. CT of the abdomen and pelvis: 6 mm distal right ureteral calculus with mild upstream hydronephrosis. Bilateral nonobstructing renal calculi In the emergency room patient received ceftriaxone and normal saline. Review of Systems Review of systems CONSTITUTIONAL: No fever, no malaise, no fatigue. HEENT: No recent visual problems or hearing problems. Denied any sore throat. CARDIOVASCULAR: No orthopnea, PND, no palpitations, no syncope. PULMONARY: No shortness of breath, no cough, no hemoptysis. GASTROINTESTINAL: No diarrhea, no nausea, no vomiting, Normoactive bowel sounds. NEUROLOGICAL: No headaches, no weakness, no numbness. HEMATOLOGICAL: Denies any bleeding or petechiae. GENITOURINARY: Denies any burning micturition, frequency, or urgency. MUSCULOSKELETAL/RHEUMATOLOGICAL: Denies any joint pain, swelling, or any muscle pain. ENDOCRINE: Denies any polyuria or polydipsia. Past Medical History Additional Past Medical History / Comment(s): migraines, abnormal vaginal bleeding History of Any Multi-Drug Resistant Organisms: None Reported Past Surgical History: Cholecystectomy, Orthopedic Surgery, Uterine Ablation Additional Past Surgical History / Comment(s): left knee arthroscopy Past Anesthesia/Blood Transfusion Reactions: Previous Problems w/ Anesthesia, Motion Sickness, Postoperative Nausea & Vomiting (PONV) Additional Past Anesthesia/Blood Transfusion Reaction / Comment(s): dizzy in recovery after uterine ablation then developed itching all over after getting home Past Psychological History: No Psychological Hx Reported Smoking Status: Current every day smoker Past Alcohol Use History: Occasional Past Drug Use History: None Reported - Past Family History Daughter(s) Additional Family Medical History / Comment(s): "blood clot in collar bone and rib" Medications and Allergies Home Medications Medication Instructions Recorded Confirmed Type Eletriptan [Relpax] 40 mg PO DAILY PRN 08/16/17 09/12/22 History Ibuprofen [Motrin] 800 mg PO DAILY PRN 08/16/17 09/12/22 History Cephalexin [Keflex] 500 mg PO Q6HR 09/12/22 09/12/22 History Cyclobenzaprine [Flexeril] 5 mg PO BID PRN 09/12/22 09/12/22 History Tamsulosin [Flomax] 0.4 mg PO DAILY #14 cap 09/12/22 Rx Allergies Allergy/AdvReac Type Severity Reaction Status Date / Time Penicillins Allergy Unknown Verified 09/12/22 22:10 Childhood Physical Exam Vitals: Vital Signs Temp Pulse Resp BP Pulse Ox 09/13/22 05:09 73 16 110/59 98 09/13/22 02:48 98.5 F 65 16 145/68 99 09/12/22 23:13 80 16 92/59 99 09/12/22 21:52 76 17 133/80 100 09/12/22 20:24 78 16 122/70 97 09/12/22 18:11 98.2 F 86 16 135/79 96 Intake and Output 09/12/22 09/13/22 09/13/22 22:59 06:59 14:59 Other: Weight 58.967 kg GENERAL: The patient is alert and oriented x3, not in any acute distress. Well developed, well nourished. HEENT: Pupils are round and equally reacting to light. EOMI. No scleral icterus. No conjunctival pallor. Normocephalic, atraumatic. No pharyngeal erythema. No thyromegaly. CARDIOVASCULAR: S1 and S2 present. No murmurs, rubs, or gallops. PULMONARY: Chest is clear to auscultation, no wheezing or crackles. ABDOMEN: Soft, nontender, nondistended, normoactive bowel sounds. No palpable organomegaly. MUSCULOSKELETAL: No joint swelling or deformity. EXTREMITIES: No cyanosis, clubbing, or pedal edema. NEUROLOGICAL: Gross neurological examination did not reveal any focal deficits. SKIN: No rashes. no petechiae. Results CBC & Chem 7: 09/12/22 20:10 09/12/22 20:10 Labs: Abnormal Lab Results - Last 24 Hours (Table) 09/12/22 09/12/22 09/12/22 Range/Units 19:12 20:10 20:10 RBC 3.72 L (3.80-5.40) m/uL MCH 36.2 H (25.0-35.0) pg MCHC 37.2 H (31.0-37.0) g/dL Plt Count 144 L (150-450) k/uL Potassium 2.7 L* (3.5-5.1) mmol/L Carbon Dioxide 21 L (22-30) mmol/L Total Protein 5.6 L (6.3-8.2) g/dL Urine Protein 1+ H (Negative) Urine Ketones 2+ H (Negative) Urine Blood Large H (Negative) Ur Leukocyte Esterase Trace H (Negative) Urine RBC >182 H (0-5) /hpf Urine WBC 12 H (0-5) /hpf Ur Squamous Epith Cells 5 H (0-4) /hpf Urine Bacteria Rare H (None) /hpf Urine Mucus Moderate H (None) /hpf Microbiology - Last 24 Hours (Table) 09/12/22 19:12 Urine Culture - Preliminary Urine,Clean Catch Assessment and Plan Assessment: The right kidney stone 6 mm with mild right hydronephrosis. With bilateral nonobstructing kidney stones Acute urinary tract infection Hypokalemia History of migraine This is a pleasant 46 years old female who presents with UTI, kidney stone with mild hydronephrosis Continue with gentle hydration normal saline Continue with pain management Plan: Continue with ceftriaxone Follow-up urine culture Urology consult Labs and medication were reviewed.. Continue same treatment. Continue with symptomatic treatment. Resume home medication. Monitor lytes and vitals. DVT and GI prophylaxis. Further recommendations as per clinical course of the patient DVT prophylaxis: Subcutaneous heparin GI Prophylaxis: Pepcid PT/OT: Pending Prognosis is guarded
[2022-09-13] MEDS: SODIUM CHLORIDE 0.9% 1,000 ML IV SCH ×2 (11:16→23:08)
[2022-09-13 14:14] LABS: ALT 24 U/L (4-34); AST 22 U/L (14-36); African American GFR (CKD) >90 (>60 ml/min/1.73 sqM); Albumin 3.5 g/dL (3.5-5.0); Albumin/Globulin Ratio 1.6; Alkaline Phosphatase 70 U/L (38-126); Anion Gap 8 mmol/L; Blood Urea Nitrogen 10 mg/dL (7-17); Calcium 8.3 mg/dL (8.4-10.2); Carbon Dioxide 24 mmol/L (22-30); Chloride 109 mmol/L (98-107); Globulin 2.2 g/dL; Glucose 95 mg/dL (74-99); Non-African American GFR(CKD) >90 (>60 ml/min/1.73 sqM); Potassium 3.5 mmol/L (3.5-5.1); Sodium 141 mmol/L (137-145); Total Bilirubin 0.5 mg/dL (0.2-1.3); Total Protein 5.7 g/dL (6.3-8.2)
[2022-09-14 07:38] LABS: Basophils % (A) 1 %; Eosinophils # (A) 0.1 k/uL (0-0.7); Eosinophils % (A) 2 %; HCT 36.3 % (34.0-46.0); HGB 12.8 gm/dL (11.4-16.0); Lymphocytes # (A) 1.9 k/uL (1.0-4.8); Lymphocytes % (A) 40 %; MCH 35.6 pg (25.0-35.0); MCHC 35.4 g/dL (31.0-37.0); MCV 100.6 fL (80.0-100.0); Mean Platelet Volume 9.1; Monocytes # (A) 0.3 k/uL (0-1.0); Monocytes % (A) 6 %; Neutrophils # (A) 2.4 k/uL (1.3-7.7); Neutrophils % (A) 51 %; Platelet Count 164 k/uL (150-450); RBC 3.61 m/uL (3.80-5.40); RDW 12.5 % (11.5-15.5); WBC 4.7 k/uL (3.8-10.6)
[2022-09-14 07:49] LABS: African American GFR (CKD) >90 (>60 ml/min/1.73 sqM); Anion Gap 7 mmol/L; Blood Urea Nitrogen 6 mg/dL (7-17); Calcium 8.1 mg/dL (8.4-10.2); Carbon Dioxide 23 mmol/L (22-30); Chloride 111 mmol/L (98-107); Glucose 98 mg/dL (74-99); HCG,Qualitative Serum Not Detected; Non-African American GFR(CKD) >90 (>60 ml/min/1.73 sqM); Potassium 3.3 mmol/L (3.5-5.1); Sodium 141 mmol/L (137-145)
[2022-09-14] MEDS ORDERED: Potassium Replacement Protocol 1 EACH MISC MISCELLANE PRN (10:15)
[2022-09-14] MEDS: POTASSIUM CHLORIDE ER 20 MEQ TAB.ER PO SCH ×2 (10:33→11:42)
[2022-09-14 11:35] VITALS: BP 113/76; PULSE 66; RESP 18; TEMP 98.7
--- NOTE | 2022-09-14 12:39 | P.GSCN ---
History of Present Illness Consult date: 09/14/22 Reason for Consult: right ureteral stone History of present illness: This is a 46 yo female with hx of 6mm right sided distal ureteral stone. She indicated pain has been present for one week, she presented to the hospital on Tuesday secondary to intractable pain. She underwent a CT scan at that time that showed evidence of a 6 mm right-sided distal stone, and bilateral nonobstructing stones largest is 5 mm right sided renal stone. She was admitted to the hospital for pain control. Indicated pain was associated with nausea, and she was also hypokalemic on presentation. Denies any dysuria or gross hematuria. No previous history of stones. Denies any family history of stone. This morning she indicates her pain has improved, still having some right flank pain but significantly improved compared to yesterday. Review of Systems - Constitutional Denies fever, Denies weight loss - EENT Ears, nose, mouth and throat: Denies dysphagia - Cardiovascular Denies chest pain, Denies shortness of breath - Respiratory Denies cough, Denies 7 - Gastrointestinal Reports abdominal pain, Reports nausea, Denies vomiting - Genitourinary Genitourinary: Reports flank pain, Denies dysuria, Denies hematuria - Integumentary Denies rash, Denies unusual bruising - Neurological Denies headaches, Denies syncope Past Medical History Additional Past Medical History / Comment(s): migraines, abnormal vaginal bleeding History of Any Multi-Drug Resistant Organisms: None Reported Past Surgical History: Cholecystectomy, Orthopedic Surgery, Uterine Ablation Additional Past Surgical History / Comment(s): left knee arthroscopy Past Anesthesia/Blood Transfusion Reactions: Previous Problems w/ Anesthesia, Motion Sickness, Postoperative Nausea & Vomiting (PONV) Additional Past Anesthesia/Blood Transfusion Reaction / Comm: dizzy in recovery after uterine ablation then developed itching all over after getting home Past Psychological History: No Psychological Hx Reported Smoking Status: Current every day smoker Past Alcohol Use History: Occasional Past Drug Use History: None Reported - Past Family History Daughter(s) Additional Family Medical History / Comment(s): "blood clot in collar bone and rib" Medications and Allergies Home Medications Medication Instructions Recorded Confirmed Type Eletriptan [Relpax] 40 mg PO DAILY PRN 08/16/17 09/12/22 History Cyclobenzaprine [Flexeril] 5 mg PO BID PRN 09/12/22 09/12/22 History Tamsulosin [Flomax] 0.4 mg PO DAILY #14 cap 09/12/22 Rx HYDROcodone/APAP 5-325MG [[place] 1 tab PO Q6HR PRN 3 Days #12 tab 09/14/22 Rx 5-325] Ibuprofen [Motrin] 800 mg PO DAILY PRN 3 Days #0 09/14/22 09/12/22 Rx Allergies Allergy/AdvReac Type Severity Reaction Status Date / Time Penicillins Allergy Unknown Verified 09/12/22 22:10 Childhood Surgical - Exam Vital Signs Temp Pulse Resp BP Pulse Ox 98.2 F 86 16 135/79 96 09/12/22 18:11 09/12/22 18:11 09/12/22 18:11 09/12/22 18:11 09/12/22 18:11 - General no distress, no pain - Eyes normal ocular movement, no pale - ENT normal nares, normal mucosa - Respiratory normal expansion, normal respiratory effort - Abdomen Abdomen: soft, non tender - Psychiatric oriented to time, oriented to person, oriented to place Results - Labs 09/14/22 07:21 09/14/22 07:21 Abnormal Lab Results - Last 24 Hours (Table) 09/13/22 09/14/22 09/14/22 Range/Units 13:43 07:21 07:21 RBC 3.61 L (3.80-5.40) m/uL MCV 100.6 H (80.0-100.0) fL MCH 35.6 H (25.0-35.0) pg Potassium 3.3 L (3.5-5.1) mmol/L Chloride 109 H 111 H (98-107) mmol/L BUN 6 L (7-17) mg/dL Creatinine 0.43 L (0.52-1.04) mg/dL Calcium 8.3 L 8.1 L (8.4-10.2) mg/dL Total Protein 5.7 L (6.3-8.2) g/dL Microbiology - Last 24 Hours (Table) 09/12/22 19:12 Urine Culture - Final Urine,Clean Catch Diabetes panel 09/13/22 09/14/22 Range/Units 13:43 07:21 Sodium 141 141 (137-145) mmol/L Potassium 3.5 3.3 L (3.5-5.1) mmol/L Chloride 109 H 111 H (98-107) mmol/L Carbon Dioxide 24 23 (22-30) mmol/L BUN 10 6 L (7-17) mg/dL Creatinine 0.61 0.43 L (0.52-1.04) mg/dL Glucose 95 98 (74-99) mg/dL Calcium 8.3 L 8.1 L (8.4-10.2) mg/dL AST 22 (14-36) U/L ALT 24 (4-34) U/L Alkaline Phosphatase 70 (38-126) U/L Total Protein 5.7 L (6.3-8.2) g/dL Albumin 3.5 (3.5-5.0) g/dL Calcium panel 09/13/22 09/14/22 Range/Units 13:43 07:21 Calcium 8.3 L 8.1 L (8.4-10.2) mg/dL Albumin 3.5 (3.5-5.0) g/dL Pituitary panel 09/13/22 09/14/22 Range/Units 13:43 07:21 Sodium 141 141 (137-145) mmol/L Potassium 3.5 3.3 L (3.5-5.1) mmol/L Chloride 109 H 111 H (98-107) mmol/L Carbon Dioxide 24 23 (22-30) mmol/L BUN 10 6 L (7-17) mg/dL Creatinine 0.61 0.43 L (0.52-1.04) mg/dL Glucose 95 98 (74-99) mg/dL Calcium 8.3 L 8.1 L (8.4-10.2) mg/dL Adrenal panel 09/13/22 09/14/22 Range/Units 13:43 07:21 Sodium 141 141 (137-145) mmol/L Potassium 3.5 3.3 L (3.5-5.1) mmol/L Chloride 109 H 111 H (98-107) mmol/L Carbon Dioxide 24 23 (22-30) mmol/L BUN 10 6 L (7-17) mg/dL Creatinine 0.61 0.43 L (0.52-1.04) mg/dL Glucose 95 98 (74-99) mg/dL Calcium 8.3 L 8.1 L (8.4-10.2) mg/dL Total Bilirubin 0.5 (0.2-1.3) mg/dL AST 22 (14-36) U/L ALT 24 (4-34) U/L Alkaline Phosphatase 70 (38-126) U/L Total Protein 5.7 L (6.3-8.2) g/dL Albumin 3.5 (3.5-5.0) g/dL Assessment and Plan Assessment: 46 yo female 6 mm right-sided distal stone. Pain has improved this morning, discussed option of ESWL, versus ureteroscopy with holmium laser versus a medical expulsive therapy. She is agreeable to proceed with medical expulsive therapy at this time. At this time she ok to be discharge from urology standpoint with a strainer, and pain medication. Discussed if pain recurs and at that point we'll set her up for right-sided ureteroscopy with holmium laser. Discussed the risk and benefit of surgery in detail. -Okay for discharge from urology standpoint, can follow-up as an outpatient in 1 week
--- NOTE | 2022-09-15 00:04 | P.DS ---
Providers Date of admission: 09/12/22 22:19 Attending physician: Jenna Patel MD Consults: 09/13/22 10:39 Consult Physician Routine Consulting Provider: Alberto Yi Consult Reason/Comments: kid stone Do you want consulting provider notified?: Yes Primary care physician: Kiara Nguyen [facility] Course: Diagnoses: The right kidney stone 6 mm with mild right hydronephrosis. With bilateral nonobstructing kidney stones Asymptomatic bacteriuria rather than Acute urinary tract infection. No need for antibiotic further spread this condition Hypokalemia. Improved Right ovarian cyst 3.5 cm, asymptomatic. Patient informed with instruction to follow up with women's studies professor as an outpatient and she agrees History of migraine Hospital course: This is a pleasant 46 results female with past medical history of vaginal bleeding status post uterine ablation and migraine ( on Eletriptap) Patient presents because of flank pain and hematuria Patient pain started Tuesday and got worse yesterday. It is right flank with some hematuria but no dysuria or increased frequency. No other complaints, no chest pain or dyspnea. No vomiting or diarrhea or abdominal pain. No headache or weakness or numbness. CT of the abdomen and pelvis: 6 mm distal right ureteral calculus with mild upstream hydronephrosis. Bilateral nonobstructing renal calculi In the emergency room patient received ceftriaxone and normal saline. Patient's was admitted to the hospital this is IV fluids. Today she feels much better and she was eager to be discharged home. Patient devoted by urologist and start her on Flomax with recommendation for close outpatient follow-up in 1 week. Patient was very eager to be discharged Patient denies any urinary symptoms today no dysuria or urgency or hesitancy, flank pain completely resolved. Urine culture came back negative. Most likely the patient has asymptomatic bacteriuria. Patient was cleared for discharge by urologist Problems and management plan were discussed with the patient and he verbalized understanding and acceptance Patient was found stable and can be discharged home however he needs follow-up as an outpatient. Patient was instructed to follow up with PCP Dr. Nguyen within one week and patient agrees Patient was instructed to follow up with urologist Dr. Martin in one week and she agrees and with her women's studies professor Dr. Sellers Physical exam Gen: patient is a AAOx3, no distress CVS: S1-S2, RRR, no murmur Lungs: B/L CTA, no wheezing Abdomen: soft, no distention, no tenderness, positive bowel sounds Extremity: no leg edema or induration Time spent more than 35 minutes Patient Condition at Discharge: Good Plan - Discharge Summary Discharge Rx Participant: No New Discharge Prescriptions: New Tamsulosin [Flomax] 0.4 mg PO DAILY #14 cap HYDROcodone/APAP 5-325MG [[employer] 5-325] 1 tab PO Q6HR PRN 3 Days #12 tab PRN Reason: Pain Continue Eletriptan [Relpax] 40 mg PO DAILY PRN PRN Reason: Migraine Headache Ibuprofen [Motrin] 800 mg PO DAILY PRN 3 Days #0 PRN Reason: Pain Cyclobenzaprine [Flexeril] 5 mg PO BID PRN PRN Reason: Muscle Pain Discontinued Cephalexin [Keflex] 500 mg PO Q6HR Discharge Medication List Eletriptan [Relpax] 40 mg PO DAILY PRN 08/16/17 [History] Cyclobenzaprine [Flexeril] 5 mg PO BID PRN 09/12/22 [History] Tamsulosin [Flomax] 0.4 mg PO DAILY #14 cap 09/12/22 [Rx] HYDROcodone/APAP 5-325MG [[employer] 5-325] 1 tab PO Q6HR PRN 3 Days #12 tab 09/14/22 [Rx] Ibuprofen [Motrin] 800 mg PO DAILY PRN 3 Days #0 09/14/22 [Rx] Follow up Appointment(s)/Referral(s): Porfirio Ann MD [STAFF PHYSICIAN] - 1 Week Kiara Nguyen III, MD [Primary Care Provider] - 1-2 days (Recheck your blood test with your Dr. including potassium level Prior appt preset for ) Billy Martin MD [STAFF PHYSICIAN] - 1 Week (urologist ) Patient Instructions/Handouts: Kidney Stones (ED), Hypokalemia (DC) Activity/Diet/Wound Care/Special Instructions: Regular diet, we encourage consuming potassium-rich foods like vegetable and foods especially banana and oranges. activity is restricted until you see your doctor Discharge Disposition: HOME SELF-CARE
--- NOTE | 2022-09-15 00:04 | P.DS ---
Providers Date of admission: 09/12/22 22:19 Attending physician: Jenna Patel MD Consults: 09/13/22 10:39 Consult Physician Routine Consulting Provider: Alberto Yi Consult Reason/Comments: kid stone Do you want consulting provider notified?: Yes Primary care physician: Kiara Nguyen [facility] Course: Diagnoses: The right kidney stone 6 mm with mild right hydronephrosis. With bilateral nonobstructing kidney stones Asymptomatic bacteriuria rather than Acute urinary tract infection. No need for antibiotic further spread this condition Hypokalemia. Improved Right ovarian cyst 3.5 cm, asymptomatic. Patient informed with instruction to follow up with quarantine officer as an outpatient and she agrees History of migraine Hospital course: This is a pleasant 46 results female with past medical history of vaginal bleeding status post uterine ablation and migraine ( on Eletriptap) Patient presents because of flank pain and hematuria Patient pain started Tuesday and got worse yesterday. It is right flank with some hematuria but no dysuria or increased frequency. No other complaints, no chest pain or dyspnea. No vomiting or diarrhea or abdominal pain. No headache or weakness or numbness. CT of the abdomen and pelvis: 6 mm distal right ureteral calculus with mild upstream hydronephrosis. Bilateral nonobstructing renal calculi In the emergency room patient received ceftriaxone and normal saline. Patient's was admitted to the hospital this is IV fluids. Today she feels much better and she was eager to be discharged home. Patient devoted by urologist and start her on Flomax with recommendation for close outpatient follow-up in 1 week. Patient was very eager to be discharged Patient denies any urinary symptoms today no dysuria or urgency or hesitancy, flank pain completely resolved. Urine culture came back negative. Most likely the patient has asymptomatic bacteriuria. Patient was cleared for discharge by urologist Problems and management plan were discussed with the patient and he verbalized understanding and acceptance Patient was found stable and can be discharged home however he needs follow-up as an outpatient. Patient was instructed to follow up with PCP Dr. Nguyen within one week and patient agrees Patient was instructed to follow up with urologist Dr. Martin in one week and she agrees and with her quarantine officer Dr. Sellers Physical exam Gen: patient is a AAOx3, no distress CVS: S1-S2, RRR, no murmur Lungs: B/L CTA, no wheezing Abdomen: soft, no distention, no tenderness, positive bowel sounds Extremity: no leg edema or induration Time spent more than 35 minutes Patient Condition at Discharge: Good Plan - Discharge Summary Discharge Rx Participant: No New Discharge Prescriptions: New Tamsulosin [Flomax] 0.4 mg PO DAILY #14 cap HYDROcodone/APAP 5-325MG [Mcallen 5-325] 1 tab PO Q6HR PRN 3 Days #12 tab PRN Reason: Pain Continue Eletriptan [Relpax] 40 mg PO DAILY PRN PRN Reason: Migraine Headache Ibuprofen [Motrin] 800 mg PO DAILY PRN 3 Days #0 PRN Reason: Pain Cyclobenzaprine [Flexeril] 5 mg PO BID PRN PRN Reason: Muscle Pain Discontinued Cephalexin [Keflex] 500 mg PO Q6HR Discharge Medication List Eletriptan [Relpax] 40 mg PO DAILY PRN 08/16/17 [History] Cyclobenzaprine [Flexeril] 5 mg PO BID PRN 09/12/22 [History] Tamsulosin [Flomax] 0.4 mg PO DAILY #14 cap 09/12/22 [Rx] HYDROcodone/APAP 5-325MG [Mcallen 5-325] 1 tab PO Q6HR PRN 3 Days #12 tab 09/14/22 [Rx] Ibuprofen [Motrin] 800 mg PO DAILY PRN 3 Days #0 09/14/22 [Rx] Follow up Appointment(s)/Referral(s): Porfirio Ann MD [STAFF PHYSICIAN] - 1 Week Kiara Nguyen III, MD [Primary Care Provider] - 1-2 days (Recheck your blood test with your Dr. including potassium level Prior appt preset for ) Billy Martin MD [STAFF PHYSICIAN] - 1 Week (urologist ) Patient Instructions/Handouts: Kidney Stones (ED), Hypokalemia (DC) Activity/Diet/Wound Care/Special Instructions: Regular diet, we encourage consuming potassium-rich foods like vegetable and foods especially banana and oranges. activity is restricted until you see your doctor Discharge Disposition: HOME SELF-CARE
== END 2022-09-14 13:23 | disposition home or self-care (01) | DRG 694 ==
LOC: EC 18:01 → 4SSUR 22:19 → 5NMEDONC 09-13 16:43
PROVIDERS: ADMIT Internal Medicine; ATTEND Internal Medicine
DX: N13.2 Hydronephrosis with renal and ureteral calculous obstruction (principal); R31.9 Hematuria, unspecified; R82.71 Bacteriuria; E87.6 Hypokalemia; G43.909 Migraine, unspecified, not intractable, without status migrainosus; F17.210 Nicotine dependence, cigarettes, uncomplicated; N83.202 Unspecified ovarian cyst, left side; N83.201 Unspecified ovarian cyst, right side; Z79.899 Other long term (current) drug therapy; Z90.49 Acquired absence of other specified parts of digestive tract; Z88.0 Allergy status to penicillin; Z87.442 Personal history of urinary calculi
CPT/HCPCS: 36415; 74176; 80048; 80053; 81001; 83690; 84703; 85025; 87086; 96361; 96365; 96375; 96376; 99285

== ENCOUNTER → 2022-09-27 | Outpatient (CLI) | payer BC ==
--- NOTE | 2022-09-27 15:48 | XR ---
EXAMINATION TYPE: XR KUB DATE OF EXAM: 09/27/2022 COMPARISON: 09/12/2020 HISTORY: Pain TECHNIQUE: One view abdominal series FINDINGS: The osseous structures are intact. The bowel gas pattern is nonspecific. Calcifications noted overly ing the left kidney by CT scan are not as well-seen by standard x-ray. There is a 4 mm mid pole right renal calculus. There remain multiple punctate calcifications in the left hemipelvis. No sizable kareem cifications are seen on the right. IMPRESSION: 1. No right hemipelvic calcifications are noted. 2. Nephrolithiasis.
== END | disposition home or self-care (01) ==
LOC: RADXRMAIN 15:13
PROVIDERS: ATTEND Urology
DX: N20.0 Calculus of kidney (principal)
CPT/HCPCS: 74018

== ENCOUNTER → 2022-10-01 | Outpatient (CLI) | payer BC ==
--- NOTE | 2022-10-01 16:14 | US ---
EXAMINATION TYPE: US kidneys/renal and bladder DATE OF EXAM: 10/01/2022 COMPARISON: CT 2021 CLINICAL HISTORY: N20.1 RIGHT CALCULUS OF URETER. Follow up kidney stones EXAM MEASUREMENTS: Right Kidney: 10.5 x 5.7 x 5.9 cm Left Kidney: 11.9 x 6.5 x 4.8 cm Right Kidney: No hydronephrosis or masses seen, calculus seen on previous CT not seen on today's exam Left Kidney: No hydronephrosis or masses seen, calculus seen on previous CT not seen on today's exam Bladder: wnl Bilateral Jets seen: Yes IMPRESSION: No evidence of obstructive uropathy. No renal calculi definitively visualized.
== END | disposition home or self-care (01) ==
LOC: RADUSWWP 15:38
PROVIDERS: ATTEND Urology
DX: N20.1 Calculus of ureter (principal)
CPT/HCPCS: 76770

== ENCOUNTER → 2022-10-06 | Outpatient (CLI) | payer BC ==
--- NOTE | 2022-10-07 15:09 | MM ---
Reason for Exam: Screening (asymptomatic). Last mammogram was performed 2 year(s) and 5 month(s) ago. Patient History: Menarche at age 11. First Full-Term at age 17. Hysterectomy at age 44. Maternal grandmother had breast cancer, age 55. Risk Values: Delphine 5 year model risk: 0.6%. NCI Lifetime model risk: 7.7%. Prior Study Comparison: 05/22/2014 Screening Mammogram, [facility]. 08/10/2018 Bilateral Screening Mammogram, [facility]. 04/30/2020 Bilateral Diagnostic Mammogram, [facility]. Tissue Density: There are scattered fibroglandular densities. Findings: Analyzed By CAD. Patchy distribution is stable. Benign coarse calcifications are present bilaterally No suspicious groups of microcalcifications, spiculated or lobular masses, architectural distortion or other secondary signs of malignancy are mammographically apparent. Overall Assessment: Benign, BI-RAD 2 Management: Screening Mammogram of both breasts in 1 year. A negative mammogram report should not preclude additional follow up of suspicious palpable abnormalities. Patient should continue monthly self breast exam. A clinical breast exam by your physician is recommended on an annual basis and results should be correlated with mammographic findings. Electronically signed and approved by: Yoan Vanessa D.O. Radiologis
== END | disposition home or self-care (01) ==
LOC: RADMAMWWP 15:35
PROVIDERS: ATTEND Obstetrics & Gynecology
DX: Z12.31 Encounter for screening mammogram for malignant neoplasm of breast (principal); Z80.3 Family history of malignant neoplasm of breast
CPT/HCPCS: 77063; 77067